=== PATIENT | female | born 1985 | race Caucasian/White ===

== ENCOUNTER → 2020-07-12 13:28 | Outpatient (BNVA) | payer SELFPAY | PROVIDERS: Visit Provider Nurse Practitioner | DX: R39.9 Unspecified symptoms and signs involving the genitourinary system (principal); N39.0 Urinary tract infection, site not specified | CPT/HCPCS: 81000 ==

== ENCOUNTER → 2020-09-22 10:02 | Outpatient (BNVA) | payer SELFPAY | PROVIDERS: Visit Provider Nurse Practitioner | DX: M54.9 Dorsalgia, unspecified (principal); N39.0 Urinary tract infection, site not specified | CPT/HCPCS: 81000; 87086 ==

== ENCOUNTER 2020-09-27 17:38 | Emergency (ER) | payer SELFPAY ==
[2020-09-27 17:53] VITALS: BP 175/84; PULSE 90; RESP 18; TEMP 37.1; O2SAT 97; BMI 42.9
[2020-09-27 18:00] VITALS: BP 172/121; PULSE 92; RESP 18; O2SAT 97
--- NOTE | 2020-09-27 18:09 | ED_ITS ---
HPI - Female Genitourinary General: Chief complaint: Urogenital-Female Stated complaint: UTI/KIDNEY PAIN:TREATED AT [facility] [place] .26.21 Time Seen by Provider: 09/27/20 17:54 Source: patient Mode of arrival: ambulatory Limitations: no limitations History of Present Illness: HPI Narrative: Patient is a 35-year-old female who presents to ED today with what she believes might be a urinary tract infection. Patient states she was seen at urgent care approximately 5 days ago for complaints of dysuria, urinary frequency, and left flank pain. She was placed on Bactrim (provider's note says Macrobid however pts prescription paper in the room say Bactrim). Patient states she had been on this antibiotic previously for a UTI and it seemed to work well however it does not seem to be helping with symptoms at this time. Patient states she is also having some pain across her lower back. She tells me she does have a history of an obstructive kidney/ureter stone approximately 3 years ago. At that time she states the pain she was having was masked due to the fact that she was in her third trimester of . She states she subsequently developed urosepsis because of this (this was all treated in [place]). Patient states she is not running fevers. No nausea or vomiting. She denies vaginal bleeding, discharge, odor. No concern for STIs. MD elicited complaint: dysuria, flank pain and other (urinary frequency ) Pertinent past history: other (kidney/ureter stone) Onset (ago): day(s) Severity: moderate Quality of pain: cramping Consistency: constant Vaginal discharge: none Vaginal bleeding: none Urinary symptoms: Dysuria and Frequency Exacerbating factors: none Relieving factors: none Associated symptoms: Reports no associated symptoms and abdominal pain (reports lower abdominal cramping); Deny headache(s), nausea or vaginal discharge Treatment prior to arrival: other (antibiotics-Macrobid) Sexual activity: Yes (monogamous with ) Patient : No Review of Systems Const: Denies: fever(s), chills, body aches, fatigue or malaise Card: Denies: chest pain Resp: Denies: dyspnea GI: Reports: abdominal pain (reports lower abdominal cramping); Denies: nausea, vomiting, diarrhea or change in stool character : Reports: flank pain, dysuria and urinary frequency; Denies: difficulty voiding, urinary urgency, urinary hesitancy, hematuria, genital lesions, genital pruritis, vaginal odor, vaginal bleeding or vaginal discharge Musc: Reports: back pain; Denies: neck pain, extremity pain, extremity swelling, joint pain or joint swelling Skin/Breast: Denies: rash Neuro: Denies: headache(s) PFSH ED PFSH: Social History Smoking and tobacco status: never smoked Physical Exam Const: COMMON NORMALS: no acute distress, patient oriented x3, no limitations and alert NUTRITIONAL APPEARANCE: overweight ORIENTATION/CONSCIOUSNESS: Yes awake, Yes oriented to person, Yes oriented to place and Yes oriented to time HENMT: COMMON NORMALS: normocephalic and atraumatic HEAD & SCALP: normocephalic and atraumatic GI: COMMON NORMALS: Normal to inspection, nondistended, normoactive bowel sounds present, Soft to palpation, No hepatosplenomegaly present and no masses PALPATION: Yes Soft to palpation, Yes Tenderness to palpation present (GI) (across lower abdomen-non surgical exam) and Yes No hepatosplenomegaly present : BLADDER/KIDNEY EXAM: Yes CVA tenderness on the left Back/Pelvis: COMMON NORMALS: thoracic and lumbar spine normal to inspection, no thoracic nor lumbar tenderness and thoraco-lumbar ROM normal GENERAL BACK: Yes CVA tenderness Neuro: COMMON NORMALS: patient oriented x3 SENSORIUM/ORIENTATION: Yes alert, Yes oriented to person, Yes oriented to place and Yes oriented to time Course Vital Signs: Vital signs: Vital Signs Temperature 98.7 F 09/27/20 17:53 Pulse Rate 90 09/27/20 19:56 Respiratory Rate 16 09/27/20 19:56 Blood Pressure 156/87 09/27/20 19:56 Pulse Oximetry 97 09/27/20 19:56 MDM - Female MDM Narrative: Medical decision making narrative: Patient here with complaints of dysuria, urinary frequency, lower abdominal cramping, lower back pain, left flank pain. Her culture UA from urgent care on Tuesday showed no growth apart from superficial samantha. Her UA here has no evidence for infection. Her chemistry panel is perfect. CBC is non-concerning. Patient was concerned mainly about her left flank pain given her history of what sounds like an obstructive pyelo. We decided to undergo CT imaging which showed no acute abnormalities. She does have some incidental findings that were discussed with her. At this time recommend conservative management at home with strict return to ED precautions. Recommend follow-up with primary care if pain persists. Lab Data: Attestation: I reviewed the patient's lab results. Labs: Lab Results 09/27/20 09/27/20 09/27/20 Range/Units 18:22 18:22 18:22 WBC 11.4 H (4.0-10.0) 10^3/ uL RBC 5.19 (4.1-5.3) 10^6/u L Hgb 14.0 (11.5-15.3) g/dL Hct 43.8 (37.0-47.0) % MCV 84.4 (81-99) fL MCH 27.0 L (28.0-34.0) pg MCHC 32.0 (30.0-36.0) g/dL RDW 13.8 (12.1-15.1) % Plt Count 350 (130-400) 10^3/c mm MPV 8.8 (7.4-10.4) fL Neut % (Auto) 57.4 % Lymph % (Auto) 33.2 % [place] % (Auto) 7.4 % Eos % (Auto) 1.3 % Baso % (Auto) 0.3 % Neut # (Auto) 6.53 (1.8-7.7) 10^3/u L Lymph # (Auto) 3.8 (0.8-4.8) 10^3/u L [place] # (Auto) 0.8 (0.2-0.9) 10^3/u L Eos # (Auto) 0.2 (0.0-0.8) 10^3/u L Baso # (Auto) 0.0 (0.0-0.1) 10^3/u L Nucleated RBC % (a uto) 0 % Nucleated RBCs # 0.0 /100WBC Sodium 141 (136-145) mmol/L Potassium 3.9 (3.5-5.1) mmol/L Chloride 103 (98-107) mmol/L Carbon Dioxide 28 (22-29) mmol/L Anion Gap 13.9 (5-19) BUN 17 (6-20) mg/dL Creatinine 0.6 (0.5-0.9) mg/dL GFR Calculation 114.4 (90-130) mL/min Glucose 89 (65-115) mg/dL Calculated Osmolal ity 293 (285-295) mOsm/k g Calcium 9.1 (8.5-10.5) mg/dL Total Bilirubin 0.2 (0.15-1.2) mg/dL AST 21 (0-32) U/L ALT 32 (0-33) U/L Alkaline Phosphata se 82 (35-105) IU/L Total Protein 7.7 (6.6-8.7) g/dL Albumin 4.6 (3.5-5.2) g/dL Globulin 3.1 (1.3-4.6) g/dL HCG, Qual Negative (Negative) Urine Color (Yellow) Urine Appearance (CLEAR) Urine pH (5-7) Ur Specific Gravit y (1.005-1.030) Urine Protein (Negative) Urine Glucose (UA) (Normal) Urine Ketones (Negative) Urine Blood (Negative) Urine Nitrate (Negative) Urine Bilirubin (Negative) Urine Urobilinogen (Negative) mg/dL Ur Leukocyte Ronda ase (Negative) Urine RBC (0-2) /hpf Urine WBC (0-5) /hpf Ur Squamous Epith Cells (0-5) /hpf Amorphous Sediment Urine Bacteria (NONE) /hpf Hyaline Casts /lpf Fine Granular Cast s /lpf Urine Mucus /hpf 09/27/20 Range/Units 18:22 WBC (4.0-10.0) 10^3/ uL RBC (4.1-5.3) 10^6/u L Hgb (11.5-15.3) g/dL Hct (37.0-47.0) % MCV (81-99) fL MCH (28.0-34.0) pg MCHC (30.0-36.0) g/dL RDW (12.1-15.1) % Plt Count (130-400) 10^3/c mm MPV (7.4-10.4) fL Neut % (Auto) % Lymph % (Auto) % [place] % (Auto) % Eos % (Auto) % Baso % (Auto) % Neut # (Auto) (1.8-7.7) 10^3/u L Lymph # (Auto) (0.8-4.8) 10^3/u L [place] # (Auto) (0.2-0.9) 10^3/u L Eos # (Auto) (0.0-0.8) 10^3/u L Baso # (Auto) (0.0-0.1) 10^3/u L Nucleated RBC % (a uto) % Nucleated RBCs # /100WBC Sodium (136-145) mmol/L Potassium (3.5-5.1) mmol/L Chloride (98-107) mmol/L Carbon Dioxide (22-29) mmol/L Anion Gap (5-19) BUN (6-20) mg/dL Creatinine (0.5-0.9) mg/dL GFR Calculation (90-130) mL/min Glucose (65-115) mg/dL Calculated Osmolal ity (285-295) mOsm/k g Calcium (8.5-10.5) mg/dL Total Bilirubin (0.15-1.2) mg/dL AST (0-32) U/L ALT (0-33) U/L Alkaline Phosphata se (35-105) IU/L Total Protein (6.6-8.7) g/dL Albumin (3.5-5.2) g/dL Globulin (1.3-4.6) g/dL HCG, Qual (Negative) Urine Color Yellow (Yellow) Urine Appearance Sl hazy (CLEAR) Urine pH 5 (5-7) Ur Specific Gravit y 1.015 (1.005-1.030) Urine Protein Neg (Negative) Urine Glucose (UA) Norm (Normal) Urine Ketones Negative (Negative) Urine Blood Neg (Negative) Urine Nitrate Negative (Negative) Urine Bilirubin Neg (Negative) Urine Urobilinogen Norm (Negative) mg/dL Ur Leukocyte Ronda ase Negative (Negative) Urine RBC None (0-2) /hpf Urine WBC Rare (0-5) /hpf Ur Squamous Epith Cells 15-25 H (0-5) /hpf Amorphous Sediment Not Reportable Urine Bacteria Trace (NONE) /hpf Hyaline Casts 0-4 H /lpf Fine Granular Cast s Rare /lpf Urine Mucus Trace /hpf Imaging Data: CT Abd/Pel: Radiologist's impression: [address] [address] [address] Scan Report Signed Patient: Shilpa Moran Unit #: [id number] : 1985 Age/Sex: 35 / F ADM Date: 09/27/20 Loc: ER Room/Bed: Attending Dr: Ordering Provider/Ordering MD: Annabella Stoner Date of Service: 09/27/20 Procedure(s): CT kidney stone 15994 Accession Number(s): [id number] Report Number: [id number] PROCEDURE INFORMATION: Exam: CT Abdomen And Pelvis Without Contrast Exam date and time: 09/27/2020 7:15 PM Age: 35 years old Clinical indication: Abdominal pain; Left; Patient HX: C/O L flank pain x 1 week; Additional info: L flank, low back/low abdomen pain TECHNIQUE: Imaging protocol: Computed tomography of the abdomen and pelvis without contrast. Total images: 349 Radiation optimization: All CT scans at this facility use at least one of these dose optimization techniques: automated exposure control; mA and/or kV adjustment per patient size (includes targeted exams where dose is matched to clinical indication); or iterative reconstruction. COMPARISON: No relevant prior studies available. RADIATION DOSE METRICS: Total DLP (mGy-cm): 1949.46 FINDINGS: Lungs: Limited assessment of the lung bases fails to reveal evidence for active cardiopulmonary process. Liver: Diffuse fatty infiltration of the liver with hepatomegaly. No visible hepatic mass or cystic structure. Gallbladder and bile ducts: Normal. No calcified stones. No ductal dilation. Pancreas: Pancreas unremarkable. No visible pancreatic ductal ectasia. Spleen: Splenomegaly. Small splenule. Adrenal glands: Adrenal glands unremarkable. Kidneys and ureters: No visible hydronephrosis or perinephric fluid. Solitary focus of nephrolithiasis/nephrocalcinosis measuring 2 mm bilaterally. No visible ureterolithiasis. Small hemorrhagic cortical cysts inferior pole left kidney. Simple cortical cyst inferior pole right kidney measuring 22 mm. No follow-up recommended. Stomach and bowel: Assessment of the hollow viscus fails to reveal evidence of active or acute pathology. Nonobstructed bowel pattern. No visible acute diverticulitis. No visible adynamic or reactive ileus. Appendix: The appendix is visualized and appears noninflamed. Intraperitoneal space: No visible evidence of mesenteric lymphadenitis or active mesenteritis/panniculitis. No visible pneumoperitoneum or intraperitoneal ascites. Vasculature: The abdominal aorta is nonaneurysmal. Lymph nodes: No current visible evidence of active mesenteric or retroperitoneal lymphadenopathy. Urinary bladder: Urinary bladder unremarkable. Reproductive: Unremarkable as visualized. Bones/joints: No visible active or acute osseous pathology. Soft tissues: Periumbilical hernia containing fat only. Other findings: Marked obesity. Increased quantum mottle artifact. CT/CT kidney stone 23539 IMPRESSION: 1. Currently no visible evidence of acute abdominal or pelvic pathologic process. 2. Diffuse fatty infiltration of the liver with hepatomegaly. 3. Splenomegaly. 4. No visible hydronephrosis or ureterolithiasis. 5. Solitary focus of nephrolithiasis/nephrocalcinosis measuring 2 mm bilaterally. COMMENTS: Consistent with the [place] [employer]'s Incidental Findings Committee white paper (J Am Matt Radiol 2018): Any incidental renal lesion less than 1 cm or classified as too small to characterize, or any incidental cystic renal lesion characterized as simple-appearing, is likely benign. No follow-up imaging is recommended for these lesions per consensus recommendations based on imaging criteria. Radiation Dose CTDIVOL = (mGy): DLP = 1949.46 (mGy-cm) Dictated By: Bello Khan Signed By: Bello Khan Signed Date/Time: 09/27/201955 DD/ 53 Discharge Plan Discharge Patient Disposition: Home Clinical Impression: Left flank pain Condition: Stable Prescriptions: No Action nitrofurantoin monohyd/m-cryst [Macrobid] 100 mg capsule 100 mg PO Q12H 7 Days Qty: 14 RF: 0 phenazopyridine [Pyridium] 200 mg tablet 200 mg PO TID Qty: 6 RF: 0 Discharge Orders: Discharge ED (Routine); Ordered 09/27/20 Ordered By: Annabella Stoner Patient Instructions: Abdominal Pain (ED) Activity Restrictions/Additional Instructions: As we discussed please return to the emergency department for worsening abdominal or flank pain, severe abdominal pain, vaginal discharge/odor, inability to urinate, fevers greater than 100.4, repetitive episodes of vomiting, bloody diarrhea, or any other concerns you may have. I hope you begin to feel better soon. Coding Level of Care Code ED Veneer Grader for Chg Fwd Exam Detailed
[2020-09-27 18:27] LABS: Basophils % 0.3 %; Eosinophils # 0.2 10^3/uL (0.0-0.8); Eosinophils % 1.3 %; Hematocrit 43.8 % (37.0-47.0); Lymphocytes # 3.8 10^3/uL (0.8-4.8); Lymphocytes % 33.2 %; Mean Corpuscular Volume 84.4 fL (81-99); Mean Platelet Volume 8.8 fL (7.4-10.4); Monocytes # 0.8 10^3/uL (0.2-0.9); Monocytes % 7.4 %; Neutrophils # 6.53 10^3/uL (1.8-7.7); Neutrophils % 57.4 %; Nucleated Red Blood Cells % 0 %; Platelet Count 350 10^3/cmm (130-400); Red Blood Count 5.19 10^6/uL (4.1-5.3); Red Cell Distribution Width 13.8 % (12.1-15.1); White Blood Count 11.4 10^3/uL (4.0-10.0)
[2020-09-27 18:37] LABS: Add Urine Microscopic? YES; Bilirubin Urine Neg (Negative); Blood Urine Neg (Negative); Glucose Urine UA Norm (Normal); Ketones Urine Negative (Negative); Leukocyte Esterase Urine Negative (Negative); Nitrate Urine Negative (Negative); Protein Urine Neg (Negative); Specific Gravity, Urine 1.015 (1.005-1.030); Urine Appearance SL Hazy (CLEAR); Urine Color Yellow (Yellow); Urobilinogen Urine Norm (Negative); pH Urine 5 (5-7)
[2020-09-27 18:46] LABS: Alanine Aminotransferase 32 U/L (0-33); Albumin Level 4.6 g/dL (3.5-5.2); Alkaline Phosphatase 82 IU/L (35-105); Anion Gap 13.9 (5-19); Aspartate Amino Transferase 21 U/L (0-32); Bacteria Urine TRACE /hpf; Blood Urea Nitrogen 17 mg/dL (6-20); Calcium 9.1 mg/dL (8.5-10.5); Carbon Dioxide 28 mmol/L (22-29); Chloride 103 mmol/L (98-107); Creatinine Clr Calc Pharmacy 163.0543; Globulin 3.1 g/dL (1.3-4.6); Glomerular Filtration Rate 114.4 mL/min (90-130); Glucose 89 mg/dL (65-115); Mucus Urine TRACE /hpf; Osmolality Calculated 293 mOsm/kg (285-295); Potassium 3.9 mmol/L (3.5-5.1); Sodium 141 mmol/L (136-145); Squamous Epithelial Cell Urine 15-25 /hpf (0-5); Total Bilirubin 0.2 mg/dL (0.15-1.2); Total Protein 7.7 g/dL (6.6-8.7); WBC Urine RARE /hpf (0-5)
[2020-09-27 18:47] LABS: Add Urine Culture? No; Fine Granular Casts Urine RARE /lpf; Hyaline Casts Urine 0-4 /lpf
[2020-09-27 18:50] LABS: HCG, Serum Qual Negative (Negative)
--- NOTE | 2020-09-27 18:56 | PC.NURSE ---
report received from TERRENCE VELASCO and care transferred to TERRENCE MAXWELL
--- NOTE | 2020-09-27 19:11 | CTR_ITS ---
PROCEDURE INFORMATION: Exam: CT Abdomen And Pelvis Without Contrast Exam date and time: 09/27/2020 7:15 PM Age: 35 years old Clinical indication: Abdominal pain; Left; Patient HX: C/O L flank pain x 1 week; Additional info: L flank, low back/low abdomen pain TECHNIQUE: Imaging protocol: Computed tomography of the abdomen and pelvis without contrast. Total images: 349 Radiation optimization: All CT scans at this facility use at least one of these dose optimization techniques: automated exposure control; mA and/or kV adjustment per patient size (includes targeted exams where dose is matched to clinical indication); or iterative reconstruction. COMPARISON: No relevant prior studies available. RADIATION DOSE METRICS: Total DLP (mGy-cm): 1949.46 FINDINGS: Lungs: Limited assessment of the lung bases fails to reveal evidence for active cardiopulmonary process. Liver: Diffuse fatty infiltration of the liver with hepatomegaly. No visible hepatic mass or cystic structure. Gallbladder and bile ducts: Normal. No calcified stones. No ductal dilation. Pancreas: Pancreas unremarkable. No visible pancreatic ductal ectasia. Spleen: Splenomegaly. Small splenule. Adrenal glands: Adrenal glands unremarkable. Kidneys and ureters: No visible hydronephrosis or perinephric fluid. Solitary focus of nephrolithiasis/nephrocalcinosis measuring 2 mm bilaterally. No visible ureterolithiasis. Small hemorrhagic cortical cysts inferior pole left kidney. Simple cortical cyst inferior pole right kidney measuring 22 mm. No follow-up recommended. Stomach and bowel: Assessment of the hollow viscus fails to reveal evidence of active or acute pathology. Nonobstructed bowel pattern. No visible acute diverticulitis. No visible adynamic or reactive ileus. Appendix: The appendix is visualized and appears noninflamed. Intraperitoneal space: No visible evidence of mesenteric lymphadenitis or active mesenteritis/panniculitis. No visible pneumoperitoneum or intraperitoneal ascites. Vasculature: The abdominal aorta is nonaneurysmal. Lymph nodes: No current visible evidence of active mesenteric or retroperitoneal lymphadenopathy. Urinary bladder: Urinary bladder unremarkable. Reproductive: Unremarkable as visualized. Bones/joints: No visible active or acute osseous pathology. Soft tissues: Periumbilical hernia containing fat only. Other findings: Marked obesity. Increased quantum mottle artifact. CT/CT kidney stone [id number] IMPRESSION: 1. Currently no visible evidence of acute abdominal or pelvic pathologic process. 2. Diffuse fatty infiltration of the liver with hepatomegaly. 3. Splenomegaly. 4. No visible hydronephrosis or ureterolithiasis. 5. Solitary focus of nephrolithiasis/nephrocalcinosis measuring 2 mm bilaterally. COMMENTS: Consistent with the [place] [employer]'s Incidental Findings Committee white paper (J Am Matt Radiol 2018): Any incidental renal lesion less than 1 cm or classified as too small to characterize, or any incidental cystic renal lesion characterized as simple-appearing, is likely benign. No follow-up imaging is recommended for these lesions per consensus recommendations based on imaging criteria. Radiation Dose CTDIVOL = (mGy): DLP = 1949.46 (mGy-cm)
[2020-09-27 19:56] VITALS: BP 156/87; PULSE 90; RESP 16; O2SAT 97
[2020-09-27 20:26] VITALS: BP 161/112; PULSE 101; RESP 14; O2SAT 96
== END 2020-09-27 20:29 | disposition home or self-care (01) ==
PROVIDERS: Emergency Provider Physician Assistant
DX: R10.9 Unspecified abdominal pain (principal)
CPT/HCPCS: 74176; 80053; 81001; 84703; 85025; 99283

== ENCOUNTER 2021-09-07 14:48 | Emergency (ER) | payer BC, MEDICAID, SELFPAY ==
[2021-09-07 15:04] VITALS: BP 182/136; PULSE 78; RESP 18; TEMP 36.6; O2SAT 97; BMI 45.4
--- NOTE | 2021-09-07 15:38 | XRR_ITS ---
PROCEDURE INFORMATION: Exam: XR Left Knee Exam date and time: 09/07/2021 3:53 PM Age: 36 years old Clinical indication: Pain and injury or trauma; Other: Twisting inury; Sprain or strain; Patella or knee; Left; Additional info: Injury/pain TECHNIQUE: Imaging protocol: XR Left knee. Views: 3 views. COMPARISON: No relevant prior studies available. FINDINGS: Bones/joints: Osseous structures are intact. Negative for fracture. Joint spaces are preserved. Soft tissues: Normal. XR/XR knee LT 3V* [id number] IMPRESSION: No acute findings.
--- NOTE | 2021-09-07 15:39 | W.ED.LOWEXIN ---
HPI - Extremity Injury (Lower) General: Chief Complaint: Extremity Injury, Lower Stated Complaint: left knee pain Time Seen by Provider: 09/07/21 15:10 Source: patient Mode of arrival: wheelchair Limitations: no limitations History of Present Illness: Patient is a 36-year-old female who presents to ED today with a complaint of left knee pain. Patient states she has had intermittent discomfort in the knee for several months. She has never sought evaluation stating that often times her pain would subside on its own. She states recently she was walking when she felt a pop in the extremity and is now having significant discomfort and is unable to bear weight. Patient states she is trying to establish with a PCP so she has not followed up with them yet. Patient was noted to be hypertensive in triage. She states she does have a history of this and used to take propranolol for treatment however has ran out of this medication and has not refilled because of the lack of PCP care currently. Patient denies headache, visual changes, chest pain, shortness of breath, difficulty breathing. MD complaint: knee injury Onset (ago): hour(s) Injury: Left: knee Place: home Severity: severe Relieving factors: immobilization Exacerbating factors: weight bearing, movement and palpation Associated symptoms: Reports inability to bear weight Other symptoms: none Review of Systems Const: Denies: fever(s), chills, body aches, fatigue or malaise Eyes: Denies: change in vision or blurry vision Card: Denies: chest pain, palpitations, lightheadedness, syncope or pre-syncope Resp: Denies: dyspnea GI: Denies: abdominal pain, nausea or vomiting Musc: Reports: joint pain (L knee); Denies: neck pain, back pain, extremity pain, extremity swelling, joint redness, joint warmth or joint stiffness Skin/Breast: Denies: rash Neuro: Denies: headache(s), numbness in extremities, weakness in extremities, sensory changes or dizziness PFSH ED PFSH: Social History Smoking and tobacco status: never smoked Physical Exam Const: COMMON NORMALS: no acute distress, patient oriented x3 and alert GENERAL APPEARANCE: cooperative ORIENTATION/CONSCIOUSNESS: Yes awake, Yes oriented to person, Yes oriented to place and Yes oriented to time HENMT: COMMON NORMALS: normocephalic and atraumatic HEAD & SCALP: normocephalic and atraumatic Resp: COMMON NORMALS: normal respiratory effort and clear to auscultation bilaterally AUSCULTATION: clear to auscultation bilaterally Cardio: COMMON NORMALS: regular rate and regular rhythm RATE: regular rate RHYTHM: regular rhythm Extremity: COMMON NORMALS: capillary refill normal, no clubbing, cyanosis or edema, no calf tenderness and no pedal edema GENERAL: Yes normal exam except as noted LEFT LOWER EXTREMITY: Yes knee joint Left knee: Yes inspection (no obvious swelling/deformity; limited secondary to body habitus), Yes palpation (TTP throughout knee joint), Yes ROM (limited secondary to pain and patient cooperation) and Yes neurovascular exam (normal) Neuro: SOFÍA COMA SCALE: document GCS findings Sofía coma scale eye opening: Spontaneous Sofía coma scale verbal response: Orientated [employer] coma scale motor response: Obey commands [employer] coma scale total score: 15 COMMON NORMALS: patient oriented x3, moves all extremities, no focal motor deficits and no sensory deficits noted SENSORIUM/ORIENTATION: Yes alert, Yes oriented to person, Yes oriented to place and Yes oriented to time Skin: COMMON NORMALS: no rashes or lesions noted GENERAL SKIN EXAM: no rashes or lesions noted Course Vital Signs: Vital signs: Vital Signs Temperature 98 F 09/07/21 15:04 Pulse Rate 87 09/07/21 17:22 Respiratory Rate 18 09/07/21 17:22 Blood Pressure 198/102 09/07/21 17:22 Pulse Oximetry 98 09/07/21 17:22 MDM - Extremity Injury (Lower) Medical Decision Making Patient is here for left knee pain/injury. XR is normal. Spoke to her about PCP follow-up and need for advanced imaging if this does not improve with conservative treatments. We also discussed how PT may also be an option. She is noted to be hypertensive. Patient is asymptomatic currently therefore this does not require emergent lowering from the ED. She will be placed back on her propranolol and I recommend she keep a BP log to follow-up with PCP so they can adjust as needed. Return to ED precautions given. Lab Data Radiology Impressions Knee X-Ray 09/07/21 15:38 IMPRESSION: No acute findings. Discharge Plan Discharge Patient Disposition: Home Clinical Impression: Hypertension Qualifiers: Hypertension type: unspecified Qualified Code(s): I10 - Essential (primary) hypertension Injury of left knee Qualifiers: Encounter type: initial encounter Qualified Code(s): S89.92XA - Unspecified injury of left lower leg, initial encounter Condition: Stable Prescriptions: New propranolol 20 mg tablet 20 mg PO BID Qty: 60 0RF ibuprofen 800 mg tablet 800 mg PO Q8H PRN (Reason: pain) Qty: 20 0RF tramadol 50 mg tablet 50 mg PO Q6H PRN (Reason: pain) Qty: 14 0RF No Action nitrofurantoin monohyd/m-cryst [Macrobid] 100 mg capsule 100 mg PO Q12H 7 Days Qty: 14 0RF Rx Instructions: must administer with a meal/food phenazopyridine [Pyridium] 200 mg tablet 200 mg PO TID Qty: 6 0RF Discharge Orders: Discharge ED (Routine); Ordered 09/07/21 Ordered By: Annabella Stoner Coding Level of Care Code ED Manager Product Management for Mary Delgado
[2021-09-07 17:22] VITALS: BP 198/102; PULSE 87; RESP 18; O2SAT 98
--- NOTE | 2021-09-16 13:30 | DCPLANNER ---
manager provider relations had message to speak with patient about getting established with a primary care physician. manager provider relations spoke with patient, she stated that she has followed up with and is established with Dr. Clark at [facility].
== END 2021-09-07 17:10 | disposition home or self-care (01) ==
PROVIDERS: Emergency Provider Physician Assistant
DX: S89.92XA Unspecified injury of left lower leg, initial encounter (principal); X58.XXXA Exposure to other specified factors, initial encounter; Y93.01 Activity, walking, marching and hiking; I10 Essential (primary) hypertension
CPT/HCPCS: 73562; 99283; E0114

== ENCOUNTER → 2021-09-09 15:03 | Outpatient (BNVA) | payer BC, MEDICAID, SELFPAY | PROVIDERS: PCP Family Medicine Adult Medicine; Referring Provider Family Medicine Adult Medicine; Visit Provider Specialist | DX: S89.92XA Unspecified injury of left lower leg, initial encounter (principal); E66.01 Morbid (severe) obesity due to excess calories; Z68.42 Body mass index [BMI] 45.0-49.9, adult; X58.XXXA Exposure to other specified factors, initial encounter | CPT/HCPCS: 99204 ==

== ENCOUNTER 2021-09-09 16:37 | Outpatient (CLI) | payer BC, MEDICAID, SELFPAY | END 2021-09-09 16:38 | disposition home or self-care (01) | LOC: SPT 16:38 | PROVIDERS: PCP Family Medicine Adult Medicine; Visit Provider Specialist | DX: S89.92XD Unspecified injury of left lower leg, subsequent encounter (principal); X58.XXXD Exposure to other specified factors, subsequent encounter | CPT/HCPCS: 97760; 99204; L1812 ==

== ENCOUNTER → 2021-09-23 14:35 | Outpatient (BNVA) | payer BC, MEDICAID, SELFPAY | PROVIDERS: PCP Family Medicine Adult Medicine; Visit Provider Family Medicine Adult Medicine | DX: E03.9 Hypothyroidism, unspecified (principal); E89.0 Postprocedural hypothyroidism; Z98.51 Tubal ligation status; I10 Essential (primary) hypertension; E66.01 Morbid (severe) obesity due to excess calories; Z68.42 Body mass index [BMI] 45.0-49.9, adult; Z13.6 Encounter for screening for cardiovascular disorders; I65.01 Occlusion and stenosis of right vertebral artery | CPT/HCPCS: 80053; 83036; 84443; 85025 ==

== ENCOUNTER → 2021-10-19 11:29 | Outpatient (BNVA) | payer BC, MEDICAID, SELFPAY | PROVIDERS: PCP Family Medicine Adult Medicine; Visit Provider Nurse Practitioner Family | DX: S89.92XD Unspecified injury of left lower leg, subsequent encounter (principal); X58.XXXD Exposure to other specified factors, subsequent encounter; E66.01 Morbid (severe) obesity due to excess calories; Z68.42 Body mass index [BMI] 45.0-49.9, adult | CPT/HCPCS: 99213 ==

== ENCOUNTER → 2021-11-19 08:57 | Outpatient (BNVA) | payer BC, MEDICAID, SELFPAY | PROVIDERS: PCP Family Medicine Adult Medicine; Visit Provider Nurse Practitioner Family | DX: S89.92XA Unspecified injury of left lower leg, initial encounter (principal); X58.XXXA Exposure to other specified factors, initial encounter; E66.01 Morbid (severe) obesity due to excess calories; Z68.42 Body mass index [BMI] 45.0-49.9, adult; M25.562 Pain in left knee | CPT/HCPCS: 73560; 73565; 99213; 99214 ==

== ENCOUNTER 2021-12-10 08:40 | Outpatient (CLI) | payer BC, MEDICAID, SELFPAY ==
--- NOTE | 2021-12-10 08:45 | MR_ITS ---
WS: [id number] MRI LEFT KNEE NONCONTRAST TECHNIQUE: Axial PD, coronal PD fat sat, coronal PD, sagittal PD, and sagittal PD fat-sat images obta ined. CLINICAL INFORMATION: Left knee pain COMPARISON: None. FINDINGS: Distal quadriceps and patella tendons are intact. Tendinosis in the distal patella tendon at the tibi al insertion. Moderate suprapatellar joint effusion with distention of suprapatellar bursa. Patella i s subluxed laterally from the trochlear groove likely in part due to large joint effusion. Recommend correlation for patella instability. Medial and lateral patellar retinacula appear grossly intact. No patellar fracture or contusion. Normal ACL and PCL. Chronic thinning of the medial and lateral meniscus with grade II chondromalacia of the medial and lateral joint compartments. This is advanced for patient this age. No acute appeari ng meniscal tears. Mild peripheral extrusion of the meniscus. Medial and lateral collateral ligaments appear intact. Popliteus appears intact. Normal popliteal fos sa. Normal Soft tissues. IMPRESSION: 1. Anterior and posterior cruciate ligaments appear intact. 2. Large suprapatellar effusion with lateral subluxation of the patella. Recommend correlation for p atellar instability. Medial and lateral patellar retinacula appear intact. 3. Normal medial and lateral collateral ligaments. 4. Normal popliteal fossa 5. Chronic thinning of the medial and lateral meniscus. No acute appearing meniscal tears. 6. Mild chondromalacia patella. 7. Tendinosis in the distal patella tendon at the tibial insertion. Outbridge grading: grade II: blister-like swelling/fraying of articular cartilage extending to surfac e
== END 2021-12-10 08:41 | disposition home or self-care (01) ==
PROVIDERS: PCP Family Medicine Adult Medicine; Visit Provider Nurse Practitioner Family
DX: M25.562 Pain in left knee (principal)
CPT/HCPCS: 73721

== ENCOUNTER → 2021-12-23 10:22 | Outpatient (BNVA) | payer BC, MEDICAID, SELFPAY | PROVIDERS: PCP Family Medicine Adult Medicine; Visit Provider Specialist | DX: M25.562 Pain in left knee (principal); M76.892 Other specified enthesopathies of left lower limb, excluding foot; M70.50 Other bursitis of knee, unspecified knee; E66.01 Morbid (severe) obesity due to excess calories; Z68.42 Body mass index [BMI] 45.0-49.9, adult | CPT/HCPCS: 99213; 99214 ==

== ENCOUNTER → 2022-06-03 11:11 | Outpatient (BNVA) | payer BC, MEDICAID, SELFPAY | PROVIDERS: PCP Family Medicine Adult Medicine; Visit Provider Family Medicine Adult Medicine | DX: R73.09 Other abnormal glucose (principal); I10 Essential (primary) hypertension; E66.01 Morbid (severe) obesity due to excess calories; Z68.42 Body mass index [BMI] 45.0-49.9, adult; Z00.00 Encounter for general adult medical examination without abnormal findings; F32.A Depression, unspecified; G43.109 Migraine with aura, not intractable, without status migrainosus; I65.01 Occlusion and stenosis of right vertebral artery; E03.9 Hypothyroidism, unspecified | CPT/HCPCS: 80053; 83036; 84443; 85025 ==

== ENCOUNTER → 2022-06-11 11:38 | Outpatient (BNVA) | payer BC, MEDICAID, SELFPAY | PROVIDERS: PCP Family Medicine Adult Medicine; Visit Provider Family Medicine Adult Medicine | DX: R30.0 Dysuria (principal); J45.901 Unspecified asthma with (acute) exacerbation; J06.9 Acute upper respiratory infection, unspecified | CPT/HCPCS: 81000 ==

== ENCOUNTER → 2023-01-06 09:05 | Outpatient (BNVA) | payer BC, MEDICAID, SELFPAY | PROVIDERS: PCP Family Medicine Adult Medicine; Visit Provider Family Medicine Adult Medicine | DX: E03.9 Hypothyroidism, unspecified (principal); I10 Essential (primary) hypertension; E11.69 Type 2 diabetes mellitus with other specified complication; E66.9 Obesity, unspecified | CPT/HCPCS: 80053; 80061; 83036; 84443 ==

== ENCOUNTER → 2023-06-21 09:18 | Outpatient (BNVA) | payer BC, MEDICAID, SELFPAY | PROVIDERS: PCP Family Medicine Adult Medicine; Visit Provider Family Medicine Adult Medicine | DX: R39.9 Unspecified symptoms and signs involving the genitourinary system (principal); R30.0 Dysuria | CPT/HCPCS: 81000 ==

== ENCOUNTER → 2023-12-15 11:26 | Outpatient (BNVA) | payer BC, MEDICAID, SELFPAY | PROVIDERS: PCP Family Medicine Adult Medicine; Visit Provider Registered Nurse Neonatal Intensive Care | DX: R39.9 Unspecified symptoms and signs involving the genitourinary system (principal); N39.0 Urinary tract infection, site not specified | CPT/HCPCS: 81000; 87086 ==

== ENCOUNTER → 2024-01-24 10:28 | Outpatient (BNVA) | payer BC, MEDICAID, SELFPAY | PROVIDERS: PCP Family Medicine Adult Medicine; Visit Provider Nurse Practitioner | DX: J02.9 Acute pharyngitis, unspecified (principal); R09.81 Nasal congestion | CPT/HCPCS: 87426; 87880 ==

== ENCOUNTER 2024-05-21 08:51 | Emergency (ER) | payer BC, MEDICAID, SELFPAY ==
[2024-05-21 08:59] VITALS: BP 153/102; PULSE 82; RESP 18; TEMP 36.8; O2SAT 98; BMI 50.3
[2024-05-21 09:23] LABS: Bilirubin Urine Negative (Negative); Blood Urine Negative (Negative); Glucose Urine UA 3+ (Normal); Ketones Urine Negative (Negative); Leukocyte Esterase Urine Negative (Negative); Nitrate Urine Negative (Negative); Protein Urine Negative (Negative); Specific Gravity, Urine 1.018 (1.005-1.030); Urine Appearance Clear (CLEAR); Urine Color Yellow (Yellow); Urobilinogen Urine 0.2 mg/dL (Negative); pH Urine 6.5 (5-7)
[2024-05-21 09:29] LABS: Add Urine Microscopic? YES; Bacteria Urine 1+ /hpf; Hyaline Casts Urine 0-4 /lpf; RBC Urine 0-2 /hpf (0-2); WBC Urine 0-5 /hpf (0-5)
[2024-05-21 10:05] LABS: Basophils % 0.3 %; Eosinophils # 0.1 10^3/uL (0.0-0.8); Eosinophils % 1.7 %; Hematocrit 41.6 % (36-47); Lymphocytes # 2.9 10^3/uL (0.8-4.8); Mean Corpuscular HGB Conc 31.5 g/dL (30-55); Mean Corpuscular Hemoglobin 25.8 pg (27-33); Mean Corpuscular Volume 82.1 fl (85-98); Mean Platelet Volume 8.7 fL (7.4-10.4); Monocytes # 0.6 10^3/uL (0.2-0.9); Monocytes % 7.3 %; Neutrophils # 3.97 10^3/uL (1.8-7.7); Neutrophils % 52.3 %; Nucleated Red Blood Cells % 0 %; Platelet Count 303 10^3/cmm (157-399); Red Blood Count 5.07 10^6/uL (3.85-5.65); Red Cell Distribution Width 14.4 % (12.1-15.1); White Blood Count 7.58 10^3/uL (3.29-11.43)
[2024-05-21 10:24] LABS: Alanine Aminotransferase 51 U/L (0-33); Albumin Level 4.1 g/dL (3.5-5.2); Alkaline Phosphatase 84 U/L (35-105); Anion Gap 12.6 (5-19); Aspartate Amino Transferase 33 U/L (0-32); Blood Urea Nitrogen 13 mg/dL (6-20); Calcium 9.6 mg/dL (8.5-10.5); Carbon Dioxide 29 mmol/L (22-29); Chloride 103 mmol/L (98-107); Creatinine Clr Calc Pharmacy 172.5595; Globulin 3.3 g/dL (1.3-4.6); Glomerular Filtration Rate 111.9 mL/min (90-130); Glucose 191 mg/dL (65-115); Osmolality Calculated 295 mOsm/kg (285-295); Potassium 4.6 mmol/L (3.5-5.1); Sodium 140 mmol/L (136-145); Total Bilirubin 0.2 mg/dL (0.15-1.2); Total Protein 7.4 g/dL (6.6-8.7)
[2024-05-21 10:28] LABS: HCG, Serum Qual Negative (Negative)
--- NOTE | 2024-05-21 11:07 | ED_ITS ---
HPI - Female Genitourinary 2 General: Chief complaint: Urogenital-Female Stated complaint: kidney problems Time Seen by Provider: 05/21/24 10:57 Source: patient Mode of arrival: ambulatory Limitations: no limitations History of Present Illness: Patient is a 39-year-old female presents to ED today suspecting she may have a urinary tract infection. Patient states she has a history of UTIs and states that her symptoms often times come on rapidly. She states in the middle of the night she began developing urinary frequency, hesitancy, urgency. She describes suprapubic cramping/spasming while morning. She is having some pain across her lower back. No flank pain. She does have a history of kidney stones and at one point developed urosepsis from obstructive uropathy. Patient is not having any vomiting. No fevers. She has not noticed any hematuria. She does feel like her urine has been cloudy. No odorous urine. He is not having any severe dysuria. Has not noticed any painful intercourse or abnormal vaginal bleeding or discharge. MD elicited complaint: UTI and back pain Pertinent past history: recurrent UTIs Onset (ago): hour(s) Severity: moderate Female Urogenital Radiation: Suprapubic Quality of pain: cramping Vaginal discharge: none Vaginal bleeding: none Urinary symptoms: Frequency and Urgency Exacerbating factors: urination Relieving factors: none Associated symptoms: Reports nausea; Deny headache(s) or vaginal discharge Treatment prior to arrival: none Patient : No Related Data Home Medications Medication Instructions Recorded Confirmed metformin 500 mg tablet 500 mg PO DAILY 05/21/24 05/21/24 pantoprazole 20 mg tablet,delayed 20 mg PO DAILY 05/21/24 05/21/24 release propranolol 20 mg tablet 20 mg PO TID 05/21/24 05/21/24 thyroid (pork) 15 mg tablet (MIXED ANIMAL VETERINARIAN 15 mg PO DAILY 05/21/24 05/21/24 Thyroid) Previous Rx's Medication Instructions Recorded Hinged Knee brace #1 ea 09/09/21 bupropion HCl 150 mg tablet,12 hr 300 mg (2 x 150 mg) PO QAM #60 tabs 01/17/24 sustained-release lisinopril 10 mg tablet 10 mg PO DAILY blood pressure #90 01/17/24 tabs simvastatin 40 mg tablet 40 mg PO DAILY elevated Chol/fats 01/17/24 #90 tabs nortriptyline 25 mg capsule 25 mg PO .qhs #60 caps 03/26/24 sulfamethoxazole 800 1 tab PO BID 7 days #14 tabs 05/21/24 mg-trimethoprim 160 mg tablet (Bactrim DS) Allergies Allergy/AdvReac Type Severity Reaction Status Date / Time No Known Allergies Allergy Verified 01/24/24 10:16 Review of Systems 2 Const: Denies: fever(s), chills, body aches, fatigue or malaise Card: Denies: chest pain Resp: Denies: dyspnea GI: Reports: nausea; Denies: vomiting, diarrhea or change in bowel habits : Reports: urinary frequency, urinary urgency and pelvic pain (suprapubic pressure when urinating); Denies: flank pain, vaginal odor, vaginal bleeding, vaginal discharge or dyspareunia Musc: Reports: back pain; Denies: neck pain, extremity pain, extremity swelling, joint pain or joint swelling Skin/Breast: Denies: rash Neuro: Denies: headache(s), numbness in extremities, weakness in extremities, sensory changes or dizziness PFSH ED 2 PFSH: Medical History Allergic rhinitis due to allergen Dysuria Hyperlipidemia associated with type 2 diabetes mellitus Reactive airway disease with acute exacerbation Diabetes mellitus type 2 in obese Insomnia Depression Migraine aura without headache 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 Hypothyroidism (acquired) Hypertension Surgical History H/O tubal ligation History of renal stent History of partial thyroidectomy Left side removed 2013 Family History Other Cancer Diabetes Hyperlipidemia Hypertension Stroke Social History Smoking and tobacco/nicotine status: unknown if used tobacco/nicotine Alcohol intake: never Substance/Drug Use: never Marital status: Current occupational status: employed Current occupation: self employed Physical Exam 2 Const: COMMON NORMALS: no acute distress, patient oriented x3, no limitations, alert and well nourished GENERAL APPEARANCE: cooperative NUTRITIONAL APPEARANCE: obese morbidly obese (BMI 50.3) ORIENTATION/CONSCIOUSNESS: Yes awake, Yes oriented to person, Yes oriented to place and Yes oriented to time Eye: COMMON NORMALS: no scleral icterus GENERAL EYE: appearance normal, both eyes and all related structures Resp: COMMON NORMALS: normal respiratory effort and clear to auscultation bilaterally AUSCULTATION: clear to auscultation bilaterally Cardio: COMMON NORMALS: regular rate and regular rhythm RATE: regular rate RHYTHM: regular rhythm GI: COMMON NORMALS: Normal to inspection, nondistended, normoactive bowel sounds present, Soft to palpation, No hepatosplenomegaly present and no masses INSPECTION: Yes normal to inspection AUSCULTATION: Yes normoactive bowel sounds PALPATION: Yes Soft to palpation, Yes Tenderness to palpation present (GI) (mild lower/suprapubic; non surgical exam), No Guarding due to palpation present (GI), No Rigid due to palpation and Yes No hepatosplenomegaly present : COMMON NORMALS: Yes no CVA tenderness BLADDER/KIDNEY EXAM: Yes no CVA tenderness Back/Pelvis: COMMON NORMALS: no CVA tenderness and thoracic and lumbar spine normal to inspection OTHER: mild pain across lower back Extremity: GENERAL: Yes normal exam except as noted Neuro: COMMON NORMALS: patient oriented x3, moves all extremities, no focal motor deficits and no sensory deficits noted SENSORIUM/ORIENTATION: Yes alert, Yes oriented to person, Yes oriented to place and Yes oriented to time Skin: COMMON NORMALS: no rashes or lesions noted GENERAL SKIN EXAM: no rashes or lesions noted Course 2 Vital Signs: Vital signs: Vital Signs Temperature 98.3 F 05/21/24 08:59 Pulse Rate 79 05/21/24 11:21 Respiratory Rate 16 05/21/24 11:21 Blood Pressure 152/96 05/21/24 11:21 Pulse Oximetry 98 05/21/24 11:21 Oxygen Delivery Me thod Room Air 05/21/24 08:59 MDM - Female Medical Decision Making Patient appears in no acute distress. Her vital signs are stable. Blood work overall is unremarkable. Her UA is contaminated but not overly suspicious for infection at this time. Will go ahead and treat based on history and exam. Return to ED precautions given. Otherwise she can follow-up with primary care. Medical Records I reviewed the patient's medical records. Lab Data I reviewed the patient's lab results. 05/21/24 09:57 05/21/24 09:57 Laboratory Results WBC 7.58 10^3/uL (3.29-11.43) 05/21/24 09:57 RBC 5.07 10^6/uL (3.85-5.65) 05/21/24 09:57 Hgb 13.10 g/dL (11.27-16.99) 05/21/24 09:57 Hct 41.6 % (36-47) 05/21/24 09:57 MCV 82.1 fl (85-98) L 05/21/24 09:57 MCH 25.8 pg (27-33) L 05/21/24 09:57 MCHC 31.5 g/dL (30-55) 05/21/24 09:57 RDW 14.4 % (12.1-15.1) 05/21/24 09:57 Plt Count 303 10^3/cmm (157-399) 05/21/24 09:57 MPV 8.7 fL (7.4-10.4) 05/21/24 09:57 Neut % (Auto) 52.3 % 05/21/24 09:57 Lymph % (Auto) 38.0 % 05/21/24 09:57 [place] % (Auto) 7.3 % 05/21/24 09:57 Eos % (Auto) 1.7 % 05/21/24 09:57 Baso % (Auto) 0.3 % 05/21/24 09:57 Neut # (Auto) 3.97 10^3/uL (1.8-7.7) 05/21/24 09:57 Lymph # (Auto) 2.9 10^3/uL (0.8-4.8) 05/21/24 09:57 [place] # (Auto) 0.6 10^3/uL (0.2-0.9) 05/21/24 09:57 Eos # (Auto) 0.1 10^3/uL (0.0-0.8) 05/21/24 09:57 Baso # (Auto) 0.0 10^3/uL (0.0-0.1) 05/21/24 09:57 Nucleated RBC % (auto) 0 % 05/21/24 09:57 Nucleated RBCs # 0.0 /100WBC 05/21/24 09:57 Sodium 140 mmol/L (136-145) 05/21/24 09:57 Potassium 4.6 mmol/L (3.5-5.1) 05/21/24 09:57 Chloride 103 mmol/L (98-107) 05/21/24 09:57 Carbon Dioxide 29 mmol/L (22-29) 05/21/24 09:57 Anion Gap 12.6 (5-19) 05/21/24 09:57 BUN 13 mg/dL (6-20) 05/21/24 09:57 Creatinine 0.6 mg/dL (0.5-0.9) 05/21/24 09:57 GFR Calculation 111.9 mL/min (90-130) 05/21/24 09:57 Glucose 191 mg/dL (65-115) H 05/21/24 09:57 Calculated Osmolality 295 mOsm/kg (285-295) 05/21/24 09:57 Calcium 9.6 mg/dL (8.5-10.5) 05/21/24 09:57 Total Bilirubin 0.2 mg/dL (0.15-1.2) 05/21/24 09:57 AST 33 U/L (0-32) H 05/21/24 09:57 ALT 51 U/L (0-33) H 05/21/24 09:57 Alkaline Phosphatase 84 U/L (35-105) 05/21/24 09:57 Total Protein 7.4 g/dL (6.6-8.7) 05/21/24 09:57 Albumin 4.1 g/dL (3.5-5.2) 05/21/24 09:57 Globulin 3.3 g/dL (1.3-4.6) 05/21/24 09:57 HCG, Qual Negative (Negative) 05/21/24 09:57 Urine Color Yellow (Yellow) 05/21/24 09:05 Urine Appearance Clear (CLEAR) 05/21/24 09:05 Urine pH 6.5 (5-7) 05/21/24 09:05 Ur Specific [place] 1.018 (1.005-1.030) 05/21/24 09:05 Urine Protein Negative (Negative) 05/21/24 09:05 Urine Glucose (UA) 3+ (Normal) H 05/21/24 09:05 Urine Ketones Negative (Negative) 05/21/24 09:05 Urine Blood Negative (Negative) 05/21/24 09:05 Urine Nitrate Negative (Negative) 05/21/24 09:05 Urine Bilirubin Negative (Negative) 05/21/24 09:05 Urine Urobilinogen 0.2 mg/dL (Negative) 05/21/24 09:05 Ur Leukocyte Esterase Negative (Negative) 05/21/24 09:05 Urine RBC 0-2 /hpf (0-2) 05/21/24 09:05 Urine WBC 0-5 /hpf (0-5) 05/21/24 09:05 Ur Squamous Epith Cells 11-20 /hpf (0-5) 05/21/24 09:05 Amorphous Sediment Not Reportable 05/21/24 09:05 Urine Bacteria 1+ /hpf (NONE) H 05/21/24 09:05 Hyaline Casts 0-4 /lpf H 05/21/24 09:05 No radiology studies performed this visit Discharge Plan Discharge Patient Disposition: Home Clinical Impression: Urinary tract infection Qualifiers: Urinary tract infection type: acute cystitis Hematuria presence: without hematuria Qualified Code(s): N30.00 - Acute cystitis without hematuria Condition: Stable Prescriptions: New sulfamethoxazole-trimethoprim [Bactrim DS] 800-160 mg tablet 1 tab PO BID 7 Days Qty: 14 0RF No Action (DME) Hinged Knee brace See Rx Instructions .Route .MEDSUPPLY Qty: 1 0RF Rx Instructions: As directed bupropion HCl 150 mg tablet sustained-release 12 hr 300 mg PO QAM Qty: 60 2RF simvastatin 40 mg tablet 40 mg PO DAILY Qty: 90 1RF lisinopril 10 mg tablet 10 mg PO DAILY Qty: 90 1RF nortriptyline 25 mg capsule 25 mg PO .qhs Qty: 60 1RF metformin 500 mg tablet 500 mg PO DAILY pantoprazole 20 mg tablet,delayed release (DR/EC) 20 mg PO DAILY Rx Instructions: TAKE 1 TABLET BY MOUTH ONCE DAILY NEEDED FOR ACID REFLUX propranolol 20 mg tablet 20 mg PO TID thyroid (pork) [MIXED ANIMAL VETERINARIAN Thyroid] 15 mg tablet 15 mg PO DAILY Discharge Orders: Discharge ED (Routine); Ordered 05/21/24 Ordered By: Annabella Stoner Referrals: Sunny Clark MD [Primary Care Provider] - Coding Level of Care Code ED Associate Art Director for [facility]
[2024-05-21 11:21] VITALS: BP 152/96; PULSE 79; RESP 16; O2SAT 98
[2024-05-21 11:56] VITALS: BP 143/99; RESP 18; O2SAT 96
[2024-05-21 12:02] VITALS: BP 138/87; PULSE 78; RESP 16; O2SAT 96
== END 2024-05-21 12:05 | disposition home or self-care (01) ==
PROVIDERS: Emergency Provider Physician Assistant; PCP Family Medicine Adult Medicine
DX: N30.00 Acute cystitis without hematuria (principal); Z79.84 Long term (current) use of oral hypoglycemic drugs; I10 Essential (primary) hypertension
CPT/HCPCS: 36415; 80053; 81001; 84703; 85025; 99283

== ENCOUNTER → 2024-07-10 11:28 | Outpatient (BNVA) | payer BC, MEDICAID, SELFPAY | PROVIDERS: PCP Family Medicine Adult Medicine; Visit Provider Family Medicine | DX: R73.03 Prediabetes (principal); E03.9 Hypothyroidism, unspecified; E78.2 Mixed hyperlipidemia; I15.9 Secondary hypertension, unspecified; K76.0 Fatty (change of) liver, not elsewhere classified; F32.A Depression, unspecified; E66.01 Morbid (severe) obesity due to excess calories; Z68.42 Body mass index [BMI] 45.0-49.9, adult; G56.03 Carpal tunnel syndrome, bilateral upper limbs; Z76.89 Persons encountering health services in other specified circumstances; F32.89 Other specified depressive episodes; G43.109 Migraine with aura, not intractable, without status migrainosus; Z86.79 Personal history of other diseases of the circulatory system | CPT/HCPCS: 80053; 80061; 83036; 84439; 84443; 85025 ==

== ENCOUNTER → 2024-07-12 16:11 | Outpatient (BNVA) | payer BC, MEDICAID, SELFPAY | PROVIDERS: PCP Family Medicine; Visit Provider Family Medicine | DX: E11.9 Type 2 diabetes mellitus without complications (principal) | CPT/HCPCS: 82043 ==

== ENCOUNTER → 2024-08-22 07:05 | Outpatient (BNVA) | payer BC, MEDICAID, SELFPAY | PROVIDERS: PCP Family Medicine; Visit Provider Student in an Organized Health Care Education/Training Program | DX: G56.03 Carpal tunnel syndrome, bilateral upper limbs (principal); R20.0 Anesthesia of skin; R20.2 Paresthesia of skin | CPT/HCPCS: 73130 ==

== ENCOUNTER 2024-10-05 08:01 | Day surgery (SDC) | payer BC, MEDICAID, SELFPAY ==
[2024-10-05] VITALS (10 sets, daily range): BP systolic 115–172; BP diastolic 69–110; PULSE 76–90; RESP 16–20; TEMP 36.1–36.5; O2SAT 93–100; BMI 48.0
[2024-10-05 08:21] LABS: OR HCG Qualitative Urine Negative (Negative)
[2024-10-05 08:35] LABS: Glucose Point of Care 118 mg/dL (70-110)
[2024-10-05] MEDS: scopolamine 1 mg PATCH 1 PATCH TRANSDERMA (08:39)
[2024-10-05] MEDS: acetaminophen 1,000 MG/100 ML PIGGYBACK 400 MG IV (08:39)
[2024-10-05] MEDS: ketorolac 30 mg/mL INJ IVP (08:39)
[2024-10-05] MEDS: sodium chloride 0.9% 1,000 ML 30 ML IV (08:40)
--- NOTE | 2024-10-05 10:00 | ANES.PREANE2 ---
Pre-Anesthetic Assessment Height/Weight: Height 1.63 m Weight 127.006 kg Temp Pulse Resp BP Pulse Ox O2 Del Method 97.0 F L 90 18 151/102 97 Room Air 10/05/24 08:21 10/05/24 08:21 10/05/24 08:21 10/05/24 08:43 10/05/24 08:21 10/05/24 08:21 Operation Date: 10/05/24 10:10 Proposed Procedures p RIGHT Carpal Tunnel Release(Right) - Jacques Charanjit, DO s RIGHT [place] Canal Release(Right) - Jacques Casey, DO Last intake: Intake Last Liquid Date 10/04/24 Last Liquid Time 19:30 Last Solid Date 10/04/24 Last Solid Time 19:30 Social No alcohol and No tobacco Airway Submandibular: within normal limits Cervical ROM: Other (maginal) Mallampati: Class II CV/HEM Hypertension Metabolic Diabetes Mellitus, Hyperlipidemia, Morbid Obesity and Thyroid Disease Neuropsych Depression Anesthetic Plan ASA status: 3 Anesthesia: MAC Medications/Allergies Home Medications ?Medication ?Instructions ?Recorded ?Confirmed ?Last Taken ?Type Hinged Knee brace #1 ea 09/09/21 09/19/24 Unknown Rx pantoprazole 20 mg tablet,delayed 20 mg PO DAILY 05/21/24 10/04/24 10/04/24 History release lisinopril 10 mg tablet 10 mg PO DAILY blood pressure #90 07/06/24 10/04/24 10/04/24 Rx tabs simvastatin 40 mg tablet 40 mg PO DAILY elevated Chol/fats 07/06/24 10/04/24 10/04/24 Rx #90 tabs bupropion HCl 150 mg tablet,12 hr 300 mg (2 x 150 mg) PO QAM #60 tabs 07/10/24 10/04/24 10/05/24 Rx sustained-release metformin 500 mg tablet 1,000 mg (2 x 500 mg) PO .qpm #180 07/10/24 10/04/24 10/04/24 Rx tabs nortriptyline 25 mg capsule 25 mg PO .qhs #60 caps 07/24/24 10/04/24 10/04/24 Rx thyroid (pork) 15 mg tablet (CIRCULAR HEAD SAW OPERATOR 15 mg PO DAILY #90 tabs 08/09/24 10/04/24 10/05/24 Rx Thyroid) propranolol 20 mg tablet 20 mg PO TID #180 tabs 08/23/24 10/04/24 10/05/24 Rx dulaglutide 0.75 mg/0.5 mL 0.75 mg (0.5 mL) SUBCUT .qw #2 mL 08/30/24 10/04/24 09/25/24 Rx subcutaneous pen injector (Trulicity) Allergies Allergy/AdvReac Type Severity Reaction Status Date / Time latex Allergy ADR-Itching Verified 10/04/24 11:33 Current Medications Generic Name Dose Route Start Last Admin Trade Name Rosemarie PRN Reason Stop Dose Admin Sodium Chloride 1,000 mls @ 30 mls/hr 10/05/24 08:15 10/05/24 08:40 Sodium Chloride 0.9% IV 10/06/24 08:14 30 mls/hr .Q24H SANDRA Administration PFSH Anesthesia Medical History Type 2 diabetes mellitus Hx of arterial dissection hx unclear; was in [place] 2013--she says dissection of artery in back of head, was on blood thinners for months Carpal tunnel syndrome, bilateral Mixed hyperlipidemia NAFLD (nonalcoholic fatty liver disease) History of nephrolithiasis Allergic rhinitis due to allergen Dysuria Hyperlipidemia associated with type 2 diabetes mellitus Insomnia Depression Migraine aura without headache 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 Hypothyroidism (acquired) Hypertension Surgical History History of ureter stent hx of stones H/O tubal ligation History of partial thyroidectomy Left side removed 2013 Family History Other Cancer Diabetes Hyperlipidemia Hypertension Stroke Social History Smoking and tobacco/nicotine status: never used tobacco/nicotine Alcohol intake: never Substance/Drug Use: never Household members: spouse Marital status: Number of children: 4 Highest education level completed: Bachelor's Degree Current occupational status: employed Current occupation: self employed construction Female Reproductive History Date of last menstrual period: 09/16/24
--- NOTE | 2024-10-05 10:11 | W.PM.OPSUD ---
Surgery/Procedure H&P Update DATE OF PROCEDURE: October 05, 2024 DATE H&P PERFORMED: 09/19/24 H&P UPDATE INFORMATION: I have reviewed H&P completed within last 30 days, I have examined patient prior to procedure and No changes to prior documentation PREOP DIAGNOSIS: Right carpal tunnel syndrome, right Guyon canal's entrapment PRIMARY INDICATION FOR PROCEDURE: Right carpal tunnel syndrome, right Guyon canal's entrapment PLANNED PROCEDURE: Operation Date: 10/05/24 10:10 Proposed Procedures p RIGHT Carpal Tunnel Release(Right) - Jacques Donohue DO s RIGHT [place] Release(Right) - Jacques Donohue DO
[2024-10-05] MEDS: ceFAZolin 3,000 MG in sodium chloride 0.9% (plus) 100 ML 200 MG IV (11:05)
[2024-10-05] MEDS: lidocaine-epi 1% PF 1:200,000 30 mL SDV INJECTION (11:26)
[2024-10-05] MEDS: ROPivacaine 0.5% SDV 30 mL 150 MG INJECTION (11:26)
--- NOTE | 2024-10-05 12:38 | ANE.PACU2 ---
Inpatient post-anesthesia follow up: Airway intact: Yes Vital signs: Temperature 97.3 F Pulse Rate 78 Respiratory Rate 20 Blood Pressure 120/83 Pulse Oximetry 100 Oxygen Delivery Me thod Simple Mask Oxygen Flow Rate 6 Fraction of Inspir ed Oxygen Hydration adequate: Yes Nausea and vomiting: No Pain level: controlled Mental status: Baseline
--- NOTE | 2024-10-05 12:52 | P.BOP_ITS ---
Date of Procedure: 10/05/2024 Surgeon: Jacques Donohue DO Dinkey Mechanic(s): None Procedure(s) performed: Right carpal tunnel release Right Guyon's canal release (ulnar nerve decompression at the wrist) Findings of the procedure(s): Patient underwent procedure as planned without issues or complications Estimated blood loss: 10 mL Specimen(s) removed: None Post-operative diagnosis: Right carpal tunnel syndrome, right Guyon's canal entrapment
--- NOTE | 2024-10-05 12:55 | PM.OP ---
Operative Report Date of procedure: October 05, 2024 Surgeon: Jacques Donohue DO Procedure: Preoperative diagnosis? Right? carpal tunnel syndrome Right ulnar nerve entrapment at the wrist Postop Diagnosis: same Procedure done: Right carpal tunnel release? Right ulnar nerve release at?Guyon's canal (wrist) Surgeon: Jacques Donohue DO Estimated blood loss: 10mL Tourniquet? 41 minutes IV fluids: 1200mL Complications: None Findings: See operative report narrative Condition: stable Disposition: same day Brief History: Patient's been seen and worked up in the outpatient setting and findings consistent with preoperative diagnosis.? Patient has? Right Carpal Tunnel Syndrome,Right ulnar entrapment at?guyons canal? which has been worked up in the outpatient setting has physical exam findings consistent with this.? Patient's nerve study consistent carpal tunnel syndrome. Patient does have subjective decrease sensation over the ring and small finger as well as positive exam findings over Guyon's canal. Exam findings consistent with preoperative diagnosis.? Patient's failed conservative treatment.? As result through shared decision making agreed to proceed with right carpal tunnel release , right Guyon's canal release. We talked about tx options as nonoperative and operative intervention.? Understands risk benefits complication alternatives surgical nonsurgical treatment options.? Understanding? risks pt agrees to proceed with surgical intervention. Understanding these risks pt agrees to proceed with surgery.? Consent obtained in preoperative holding area. Procedure: Patient seen evaluate in the preoperative holding area.? Consent was reviewed and signed with patient.? Correct extremity marked.? Patient seen evaluated by anesthesia department once cleared for surgery was then taken back to the operative suite placed in supine position all bony prominences well-padded patient properly secured to bed.? Right upper extremity placed onto armboard.? Nonsterile tourniquet applied Right upper arm.? Patient then underwent anesthesia per the anesthesia department.? Patient's Right upper extremity was then prepped and draped in standard orthopedic fashion.? Final timeout performed.? Patient received appropriate preoperative antibiotics. Esmarch was used exsanguinate the Right upper extremity.? Tourniquet was insufflated to 250 mmHg. I started with my release of the ulnar nerve at the wrist.? An extensive laterally based palmar incision that extended proximal past the wrist crease with a Mary incision was made directly over?Guyon's canal.? At this point in time incision was made between the Pisiform and hamate to follow neurovascular bundle of?Guyon's canal.? sharp scalpel incision was subsequently made through skin and then I switched to Littler dissection scissors.? At this point in time I dissected down over top?guyons canal release the brevis muscle belly along the hypothenar region to obtain access into?Guyon's canal.? Thick band of fascia was noted proximally just proximal to the wrist crease this was released and made sure there was complete decompression of the ulnar nerve proximally just prior to?Guyon's canal subsequently released?guyon canal and direct visualization with sharp scalpel excision as well as Littler dissection scissors with care utilizing my medical records assistant to protect the neurovascular bundle.? At this point in time I continued to perform release of the fascia/the roof of?Guyon's canal all the way to its most distal extent and the nerve was found to be completely free and untethered.? I then in order to perform release of the deep motor branch I then mobilized my dissection around the ulnar nerve and identified the deep motor branch as it courses towards the under knee fascia connected with the hamate.? I then utilized dissection scissors and under direct visualization completed my release carefully of the fascial bands tethering over top of the deep motor branch.? At this point in time the ulnar nerve was completely decompressed through?Guyon's canal and? ulnar nerve had complete laxity with no areas of entrapment or tethering. No masses were noted within the contents of the?guyons canal.? This completed the ulnar nerve release at the wrist. Next I then subsequently visualized from the ulnar aspect of the carpal tunnel.? Identified the distal extent as well as proximal extent into the antebrachial fascia.? As result approaching the carpal tunnel from the ulnar position just above the hook of the hamate made an incision through thickened Transverse carpal ligament.? It was noted there was significant entrapment of the median nerve.? I then switched to Littler dissection scissors to complete my dissection and release distally with care to protect neurovascular structures distally.? The tendons were healthy within the carpal tunnel.? No masses were noted.? I then carried my dissection proximally utilizing retraction by my medical records assistant as well as direct visualization with loupe magnification identify the proximal extent of the carpal tunnel and release this to its entirety as well as identified the median nerve and released the tethering of the antebrachial fascia proximally past the wrist crease into the distal aspect of the forearm with no further evidence of median nerve entrapment.? The median nerve overall showed signs of compression and inflammation irritation but overall appeared healthy.?? ?Next the wound bed was thoroughly irrigated.? Tourniquet was deflated.? Hemostasis was satisfactory.? ?The incision was then closed in standard interrupted mattress fashion.? Dressing was Xeroform 4 x 4's ABD Curlex soft roll and an Neto wrap has a bulky soft dressing and volar splint.? Patient was then awakened from anesthesia and taken to PACU in stable condition. Disposition: Patient taken to PACU in stable condition recovering well.? Patient will receive appropriate discharge instructions as well as pain medication postoperatively.? We will follow-up with me in the office in 2 weeks.? Patient understands agrees with current plan.? All questions answered.? pt understands if any questions or concerns and contact the office for follow-up appointment.
== END 2024-10-05 13:45 | disposition home or self-care (01) ==
PROVIDERS: Anesthesiology; PCP Family Medicine; Visit Provider Student in an Organized Health Care Education/Training Program
PROC: (CPT 64721; principal; 2024-10-05 10:00)
PROC: (CPT 64719; 2024-10-05 10:00)
DX: G56.03 Carpal tunnel syndrome, bilateral upper limbs (principal); G56.21 Lesion of ulnar nerve, right upper limb; E11.69 Type 2 diabetes mellitus with other specified complication; E78.2 Mixed hyperlipidemia; I10 Essential (primary) hypertension; E89.0 Postprocedural hypothyroidism; E66.01 Morbid (severe) obesity due to excess calories; Z68.42 Body mass index [BMI] 45.0-49.9, adult; Z79.899 Other long term (current) drug therapy; Z79.85 Long-term (current) use of injectable non-insulin antidiabetic drugs; Z79.84 Long term (current) use of oral hypoglycemic drugs; Z91.040 Latex allergy status
CPT/HCPCS: 64719; 64721; 36416; 81025; 82962; J0131; J0690; J1100; J1885; J2405; J2704; J2795; J3010; J7030; J9999

== ENCOUNTER → 2024-10-08 15:05 | Outpatient (BNVA) | payer BC, MEDICAID, SELFPAY | PROVIDERS: PCP Family Medicine; Visit Provider Family Medicine | DX: E11.65 Type 2 diabetes mellitus with hyperglycemia (principal) | CPT/HCPCS: 83036 ==

== ENCOUNTER 2025-01-24 06:04 | Day surgery (SDC) | payer BC, MEDICAID, SELFPAY ==
[2025-01-24] VITALS (7 sets, daily range): BP systolic 95–150; BP diastolic 34–105; PULSE 76–101; RESP 18; TEMP 36.1–36.7; O2SAT 93–98; BMI 47.9
--- NOTE | 2025-01-24 06:07 | ANES.PREANE2 ---
Pre-Anesthetic Assessment Height/Weight: Height 5 ft 4 in Preop Diagnosis: carpal tunnel syndrome Operation Date: 01/24/25 07:00 Proposed Procedures p LEFT Carpal Tunnel Release(Left) - Jacques Donohue DO s LEFT Guyon Canal Release(Left) - Jacques Donohue DO Was Beta Aristeo taken within 24 hours: N/A Was Clonidine taken within 24 hours: N/A Social No alcohol and No tobacco Exam alert, oriented x 3, clear to auscultation bilaterally and regular rate & rhythm Airway Submandibular: within normal limits Cervical ROM: within normal limits Mallampati: Class III Dentition: full Anesthetic Plan ASA status: 3 Anesthesia: General Other: No prior issues with anesthesia, prior side performed with GA with LMA size 4 NPO since yesterday evening History of hypertension on amlodipine Type 2 diabetes, on semaglutide. Last taken 01/17/2025 Nonalcoholic fatty liver disease noted will check hcg plan for GA with LMA with local via surgeon Medications/Allergies Home Medications ?Medication ?Instructions ?Recorded ?Confirmed ?Last Taken ?Type Hinged Knee brace #1 ea 09/09/21 01/04/25 01/23/25 Rx tramadol 50 mg tablet 50 mg PO Q6H PRN pain 5 days #20 10/17/24 01/23/25 01/23/25 Rx tabs nortriptyline 25 mg capsule 25 mg PO .qhs #90 caps 11/27/24 01/23/25 01/23/25 Rx amlodipine 5 mg tablet 5 mg PO DAILY #90 tabs 01/04/25 01/23/25 01/23/25 Rx atorvastatin 20 mg tablet (Lipitor) 20 mg PO DAILY #90 tabs 01/04/25 01/23/25 01/23/25 Rx semaglutide 2 mg/dose (8 mg/3 mL) 2 mg (0.75 mL) SUBCUT .qwk #3 mL 01/04/25 01/23/25 01/17/25 Rx subcutaneous pen injector (Ozempic) bupropion HCl 150 mg tablet,12 hr 300 mg (2 x 150 mg) PO QAM #60 tabs 01/22/25 01/23/25 01/23/25 Rx sustained-release losartan 100 mg tablet 100 mg PO DAILY #90 tabs 01/23/25 Unknown Rx metformin 500 mg tablet 1,000 mg PO BID 01/23/25 01/23/25 01/23/25 History pantoprazole 20 mg tablet,delayed 20 mg PO .QHS 01/23/25 01/23/25 01/23/25 History release thyroid (pork) 15 mg tablet (TOLL GATE TENDER 15 mg PO DAILY #90 tabs 01/23/25 Unknown Rx Thyroid) Allergies Allergy/AdvReac Type Severity Reaction Status Date / Time latex Allergy ADR-Itching Verified 01/04/25 14:16 [facility] Anesthesia Medical History Type 2 diabetes mellitus Hx of arterial dissection hx unclear; was in [place] 2013--she says dissection of artery in back of head, was on blood thinners for months Carpal tunnel syndrome, bilateral Mixed hyperlipidemia NAFLD (nonalcoholic fatty liver disease) History of nephrolithiasis Allergic rhinitis due to allergen Dysuria Hyperlipidemia associated with type 2 diabetes mellitus Insomnia Depression Migraine aura without headache 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 Hypothyroidism (acquired) Hypertension Surgical History History of carpal tunnel surgery of right wrist and R ulnar release too History of ureter stent hx of stones H/O tubal ligation History of partial thyroidectomy Left side removed 2013 Family History Other Cancer Diabetes Hyperlipidemia Hypertension Stroke Social History Smoking and tobacco/nicotine status: never used tobacco/nicotine Alcohol intake: never Substance/Drug Use: never Household members: spouse Marital status: Number of children: 4 Highest education level completed: Bachelor's Degree Current occupational status: employed Current occupation: self employed construction
[2025-01-24 06:26] LABS: OR HCG Qualitative Urine Negative (Negative)
[2025-01-24] MEDS: acetaminophen 1,000 MG/100 ML PIGGYBACK 400 MG IV (06:57)
--- NOTE | 2025-01-24 07:03 | W.PM.OPSFHP ---
Same Day Surgery H&P Indication for Procedure/HPI DATE OF PROCEDURE: January 24, 2025 CHIEF COMPLAINT/INDICATIONFOR SURGICAL PROCEDURE: Left carpal tunnel syndrome, left Guyon canal entrapment PREOP DIAGNOSIS: Left carpal tunnel syndrome left Guyon canal entrapment PLANNED PROCEDURE: Operation Date: 01/24/25 07:00 Proposed Procedures p LEFT Carpal Tunnel Release(Left) - Jacques Donohue, DO s LEFT [place] Canal Release(Left) - Jacques Donohue, DO Medications/Allergies* Home Medications ?Medication ?Instructions ?Recorded ?Confirmed ?Type metformin 500 mg tablet 1,000 mg PO BID 01/23/25 01/23/25 History pantoprazole 20 mg tablet,delayed 20 mg PO .QHS 01/23/25 01/23/25 History release Allergies/Adverse Reactions Allergy/AdvReac Type Severity Reaction Status Date / Time latex Allergy ADR-Itching Verified 01/24/25 06:28 Current Medications: Generic Name Dose Route Start Last Admin Trade Name Freq PRN Reason Stop Dose Admin Sodium Chloride 1,000 mls @ 30 mls/hr 01/24/25 06:15 01/24/25 06:57 Sodium Chloride 0.9% IV 01/25/25 06:14 30 mls/hr .Q24H SANDRA Administration Pertinent History/Comorbid Conditions* Medical History (Updated 01/04/25 @ 15:13 by Katerin Cordero MD) Type 2 diabetes mellitus Hx of arterial dissection hx unclear; was in [place] 2013--she says dissection of artery in back of head, was on blood thinners for months Carpal tunnel syndrome, bilateral Mixed hyperlipidemia NAFLD (nonalcoholic fatty liver disease) History of nephrolithiasis Allergic rhinitis due to allergen Dysuria Hyperlipidemia associated with type 2 diabetes mellitus Insomnia Depression Migraine aura without headache 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 Hypothyroidism (acquired) Hypertension Surgical History (Updated 10/17/24 @ 13:43 by STEVE Daniel) History of carpal tunnel surgery of right wrist and R ulnar release too History of ureter stent hx of stones H/O tubal ligation History of partial thyroidectomy Left side removed 2013 Family History (Updated 09/23/21 @ 14:02 by Shanita Salas LPN) Diabetes Hyperlipidemia Cancer Hypertension Stroke Social History Smoking and tobacco/nicotine status: never used tobacco/nicotine Alcohol intake: never Substance/Drug Use: never Household members: spouse Marital status: Number of children: 4 Highest education level completed: Bachelor's Degree Current occupational status: employed Current occupation: self employed construction Pertinent Exam Findings alert, oriented x 3, operative site marked and procedure specific exam findings Please refer to detailed orthopedic examination on 11/28/2024 listed below: LeftHand exam-positive Tinel's and positive Phalen's test. no thenar atrophy and no thenar muscle weakness. Full range of motion in fingers and wrist and fingers are warm and well-perfused with normal cap refill under 2 seconds. Positive Tinel sign ulnar aspect of wrist causing symptoms to the little finger. radial pulse 2+, intrinsic muscle weakness noted. Elbow exam-negative Tinel's test Recommendations Risks and benefits of procedure reviewed and Patient/family agree to proceed Surgery/Procedure today Other Plans: Plan to proceed to the OR today for left carpal tunnel release and left Guyon canal release. Patient's had this done on the right side is done well at this point in time she is ready to proceed with surgical intervention. Patient understands the ins and outs of procedure risk benefits complication alternatives surgery through shared decision make elects proceed with surgical invention. All questions answered at this time. Coding Level of Care Code Acute Code for Chg Fwd
[2025-01-24] MEDS: ceFAZolin 3,000 MG in sodium chloride 0.9% (plus) 100 ML 200 MG IV (07:06)
[2025-01-24] MEDS: lidocaine-epi 1% 20 mL INJ INJECTION (07:41)
[2025-01-24] MEDS: ROPivacaine 0.5% SDV 30 mL 150 MG INJECTION (07:41)
--- NOTE | 2025-01-24 08:28 | P.OP_ITS ---
Operative Report Date of procedure: January 24, 2025 Surgeon: Jacques Donohue DO Procedure: Preoperative diagnosis? Left??carpal tunnel syndrome Left ulnar nerve entrapment at the wrist Postop Diagnosis: same Procedure done: Left?carpal tunnel release? Left ulnar nerve release at?Guyon's canal (wrist) Surgeon: Jacques Donohue DO Estimated blood loss: 5mL Tourniquet? 46 minutes IV fluids: 800 mL Complications: None Findings: See operative report narrative Condition: stable Disposition: same day Brief History: Patient's been seen and worked up in the outpatient setting and findings consistent with preoperative diagnosis.? Patient has? Left?Carpal Tunnel Syndrome,Left ulnar entrapment at?guyons canal? which has been worked up in the outpatient setting has physical exam findings consistent with this.? Patient's nerve study consistent with this.? Exam findings consistent with preoperative diagnosis.? Patient's failed conservative treatment.? As result through shared decision making agreed to proceed with Left?carpal tunnel release and Left ulnar nerve release at the wrist (Guyon canal). We talked about tx options as nonoperative and operative intervention.? Understands risk benefits complication alternatives surgical nonsurgical treatment options.? Understanding? risks pt agrees to proceed with surgical intervention. Understanding these risks pt agrees to proceed with surgery.? Consent obtained in preop holding area. Procedure: Patient seen evaluate in the preoperative holding area.? Consent was reviewed and signed with patient.? Correct extremity marked.? Patient seen evaluated by anesthesia department once cleared for surgery was then taken back to the operative suite placed in supine position all bony prominences well-padded patient properly secured to bed.? Left upper extremity placed onto armboard.? Nonsterile tourniquet applied Left upper arm.? Patient then underwent anesthesia per the anesthesia department.? Patient's Left upper extremity was then prepped and draped in standard orthopedic fashion.? Final timeout performed.? Patient received appropriate preoperative antibiotics. Local anesthetic was injected under sterile aseptic technique prior to incision over the preplanned incision site. Esmarch was used exsanguinate the Left upper extremity.? Tourniquet was insufflated to 250 mmHg. I started with my release of the ulnar nerve at the wrist.? An extensive laterally based palmar incision that extended proximal past the wrist crease with a Mary incision was made directly over?Guyon's canal.? At this point in t tk incision was made between the Pisiform and hamate to follow neurovascular bundle of?Guyon's canal.? sharp scalpel incision was subsequently made through skin and then I switched to Littler dissection scissors.? At this point in time I dissected down over top?guyons canal release the brevis muscle belly along the hypothenar region to obtain access into?Guyon's canal.? Thick band of fascia was noted proximally just proximal to the wrist crease this was released and made sure there was complete decompression of the ulnar nerve proximally just prior to?Guyon's canal subsequently released?guyon canal and direct visualization with sharp scalpel excision as well as Littler dissection scissors with care utilizing my child care center assistant director to protect the neurovascular bundle.? At this point in time I continued to perform release of the fascia/the roof of?Guyon's canal all the way to its most distal extent and the nerve was found to be completely free and untethered.? I then in order to perform release of the deep motor branch I then mobilized my dissection around the ulnar nerve and identified the deep motor branch as it courses towards the under knee fascia connected with the hamate.? I then utilized dissection scissors and under direct visualization completed my release carefully of the fascial bands tethering over top of the deep motor branch.? At this point in time the ulnar nerve was completely decompressed through?Guyon's canal and? ulnar nerve had complete laxity with no areas of entrapment or tethering. No masses were noted within the contents of the?guyons canal.? This completed the ulnar nerve release at the wrist. Next I then subsequently visualized from the ulnar aspect of the?carpal tunnel.? Identified the distal extent as well as proximal extent into the antebrachial fascia.? As result approaching the?carpal tunnel from the ulnar position just above the hook of the hamate made an incision through thickened Transverse?carpal ligament.? It was noted there was significant entrapment of the median nerve.? I then switched to Littler dissection scissors to complete my dissection and release distally with care to protect neurovascular structures distally.? The tendons were healthy within the?carpal tunnel.? No masses were noted.? I then carried my dissection proximally utilizing retraction by my child care center assistant director as well as direct visualization with loupe magnification identify the proximal extent of the?carpal tunnel and release this to its entirety as well as identified the median nerve and released the tethering of the antebrachial fascia proximally past the wrist crease into the distal aspect of the forearm with no further evidence of median nerve entrapment.? The median nerve overall showed signs of compression and inflammation irritation but overall appeared he althy.?? ?Next the wound bed was thoroughly irrigated.? Tourniquet was deflated.? Hemostasis was satisfactory.? ?The incision was then closed in standard interrupted mattress fashion.? Dressing was Xeroform 4 x 4's ABD Curlex soft roll and an Neto wrap has a bulky soft dressing and volar splint.? Patient was then awakened from anesthesia and taken to PACU in stable condition. Disposition: Patient taken to PACU in stable condition recovering well.? Patient will receive appropriate discharge instructions as well as pain medication postoperatively.? We will follow-up with me in the office in 2 weeks.? Patient understands agrees with current plan.? All questions answered.? pt understands if any questions or concerns and contact the office for follow-up appointment..
--- NOTE | 2025-01-24 08:51 | P.BOP_ITS ---
Date of Procedure: [January 24, 2025] Surgeon: [Dr. Donohue DO] Sound Effects Person(s): [Arun Donohue PA-C] Procedure(s) performed: [Left carpal tunnel release left Guyon's canal release] Findings of the procedure(s): [Left carpal tunnel syndrome and left Guyon canal entrapment. Procedure went well and is planned] Estimated blood loss: [10 mL] Specimen(s) removed: [N/A] Post-operative diagnosis: [Left carpal tunnel syndrome and left Guyon canal entrapment]
--- NOTE | 2025-01-24 08:52 | PM.PACU ---
PACU note Narrative: Patient is a 40-year-old female that just underwent a left carpal tunnel release and left Guyon canals release. Patient transferred to PACU in stable condition. Pain is well controlled. Dressing on hand is dry and in place. Patient's fingers are warm and well-perfused. Patient can wiggle fingers. normal cap refill under 2 seconds. Patient has normal elbow range of motion. Unable to assess sensation due to residual localized anesthetic. Exam: somnolent, arousable Disposition: discharged
--- NOTE | 2025-01-24 09:57 | ANE.PACU2 ---
Inpatient post-anesthesia follow up: Airway intact: Yes Vital signs: Temperature 98.1 F Pulse Rate 76 Respiratory Rate 18 Blood Pressure 122/76 Pulse Oximetry 96 Oxygen Delivery Me thod Room Air Oxygen Flow Rate 6 Fraction of Inspir ed Oxygen Hydration adequate: Yes Nausea and vomiting: No Pain level: 1 Mental status: Baseline
== END 2025-01-24 09:57 | disposition home or self-care (01) ==
PROVIDERS: Student in an Organized Health Care Education/Training Program; PCP Family Medicine; Visit Provider Student in an Organized Health Care Education/Training Program
PROC: (CPT 64721; principal; 2025-01-24 07:00)
PROC: (CPT 64719; 2025-01-24 07:00)
DX: G56.02 Carpal tunnel syndrome, left upper limb (principal); G56.22 Lesion of ulnar nerve, left upper limb; E11.9 Type 2 diabetes mellitus without complications; E78.5 Hyperlipidemia, unspecified; F32.A Depression, unspecified; E03.9 Hypothyroidism, unspecified
CPT/HCPCS: 64719; 64721; 36416; 81025; 82962; J0131; J0690; J1885; J2250; J2371; J2704; J2795; J3010; J7030; J9999

== ENCOUNTER → 2025-05-21 10:55 | Outpatient (BNVA) | payer BC, MEDICAID, SELFPAY | PROVIDERS: PCP Family Medicine; Visit Provider Family Medicine | DX: E11.65 Type 2 diabetes mellitus with hyperglycemia (principal); I10 Essential (primary) hypertension; F32.89 Other specified depressive episodes; K76.0 Fatty (change of) liver, not elsewhere classified; N92.6 Irregular menstruation, unspecified | CPT/HCPCS: 80053; 82607; 83036 ==